=== PATIENT | female | born 1950 | race Caucasian/White ===

== ENCOUNTER → 2020-10-28 13:14 | Outpatient (CLI) | payer MEDICARE, SELFPAY ==
--- NOTE | ~2020-10-28 | MM_ITS ---
EXAMINATION: MM screening [facility] BI w otis HISTORY: Screening TECHNIQUE: Craniocaudal and mediolateral oblique 3-D tomosynthesis images were obtained and synthetic 2-D images were generated. CAD analysis was submitted and interpreted. COMPARISON: Comparison to multiple prior studies sequentially, with oldest reviewed study dated 06/2015. BREAST PARENCHYMAL COMPOSITION: There are scattered areas of fibroglandular density. FINDINGS: There is no evidence of suspicious mass, calcification, or architectural distortion to sugg est malignancy in either breast. There has been no suspicious interval change. IMPRESSION: 1. No mammographic evidence of malignancy. 2. Recommend routine screening mammography in one year. BI-RADS Category 1: Negative Reviewed, dictated and finalized at location A.
== END ==
PROVIDERS: PCP Internal Medicine; Visit Provider Advanced Practice Midwife
DX: Z12.31 Encounter for screening mammogram for malignant neoplasm of breast (principal)
CPT/HCPCS: 77063; 77067

== ENCOUNTER 2021-06-02 00:08 | Day surgery (SDC) | payer MEDICARE, SELFPAY ==
[2021-05-14 09:27] VITALS: BMI 31.4
--- NOTE | 2021-06-01 15:29 | PM.HPGS ---
History of Present Illness History of Present Illness Consent: Risks, benefits, and alternatives have been discussed and questions answered. Patient agrees to proceed with procedure. Chief complaint: hx of colon polyps Narrative: Deneen Willett is a 71 year old female referred for colon cancer screening. Five or 6 years ago she had a polyp removed Review of Systems Review of Systems: All systems reviewed & are unremarkable except as noted in HPI and below PMFSH Social History Social History Smoking status: Former smoker Tobacco type: cigarettes Second hand tobacco smoke exposure: No Alcohol intake: current Drinks per week: 4 Substance use: never Substance use type: does not use Living arrangements: with family Spiritual care concerns: No Meds Home Medications and Allergies Home Medications Medication Instructions Recorded Confirmed Type ascorbic acid (vitamin C) 500 mg PO DAILY 05/14/21 05/14/21 History calcium carbonate-vitamin D3 1 tablet PO DAILY 05/14/21 05/14/21 History [calcium-vitamin D3] escitalopram oxalate 10 mg PO DAILY 05/14/21 05/14/21 History ferrous sulfate [Iron (ferrous 325 mg PO DAILY 05/14/21 05/14/21 History sulfate)] insulin lispro 60 unit CONTINUOUS SUBCUTANEOUS 05/14/21 05/14/21 History INFUSION AC magnesium oxide 400 mg PO DAILY 05/14/21 05/14/21 History mecobalamin (vitamin B12) 1,000 mcg PO DAILY 05/14/21 05/14/21 History multivit with min-folic acid 1 tablet PO DAILY 05/14/21 05/14/21 History [Adult One Daily Multivitamin] vitamin B complex 1 tablet PO DAILY 05/14/21 05/14/21 History Allergies Allergy/AdvReac Type Severity Reaction Status Date / Time No Known Allergies Allergy Verified 06/02/21 06:49 Exam Resp: Auscultation: clear to auscultation bilaterally Cardio: Rate: regular rate Rhythm: regular rhythm GI: GI Palp: Yes Soft to palpation and No Tenderness to palpation present (GI) Assessment and Plan Assessment and plan (1) Colon cancer screening: Code(s): Z12.11 - Encounter for screening for malignant neoplasm of colon Status: Acute Assessment and Plan: Colonoscopy with possible biopsy or polypectomy or cautery or injection of substances.
[2021-06-02 06:51] VITALS: BP 126/65; PULSE 96; RESP 18; TEMP 36.4; O2SAT 100
[2021-06-02] MEDS: LACTATED RINGERS 1,000 ML 150 ML IV CONT (07:04)
--- NOTE | 2021-06-02 07:49 | P.PNAN_ITS ---
Anes - Initial Pre Proc Eval Procedure: Operation Date: 06/02/21 08:00 Proposed Procedures p Screening Colonoscopy - Jett Singh MD Date/Time: 06/02/21 07:49 Surgeon: Jett Singh MD Pre Op Diagnosis: hx of colon polyps Patient Data Age: 71 Gender: F Height: 1.52 m Weight: 75.2 kg Last Vital Signs Temp 97.6 F 06/02/21 06:51 Pulse 96 06/02/21 06:51 Resp 18 06/02/21 06:51 BP 126/65 06/02/21 06:51 Pulse Ox 100 06/02/21 06:51 Allergies Allergy/AdvReac Type Severity Reaction Status Date / Time No Known Allergies Allergy Verified 06/02/21 06:49 Home Medications Medication Instructions Recorded Confirmed Type ascorbic acid (vitamin C) 500 mg PO DAILY 05/14/21 05/14/21 History calcium carbonate-vitamin D3 1 tablet PO DAILY 05/14/21 05/14/21 History [calcium-vitamin D3] escitalopram oxalate 10 mg PO DAILY 05/14/21 05/14/21 History ferrous sulfate [Iron (ferrous 325 mg PO DAILY 05/14/21 05/14/21 History sulfate)] insulin lispro 60 unit CONTINUOUS SUBCUTANEOUS 05/14/21 05/14/21 History INFUSION AC magnesium oxide 400 mg PO DAILY 05/14/21 05/14/21 History mecobalamin (vitamin B12) 1,000 mcg PO DAILY 05/14/21 05/14/21 History multivit with min-folic acid 1 tablet PO DAILY 05/14/21 05/14/21 History [Adult One Daily Multivitamin] vitamin B complex 1 tablet PO DAILY 05/14/21 05/14/21 History Patient hx anesthesia problems: none Family hx anesthesia problems: none Results Review: All pre-operative results and documents have been reviewed as part of the pre-operative evaluation. [facility] Social History Social History Smoking status: Former smoker Tobacco type: cigarettes Second hand tobacco smoke exposure: No Alcohol intake: current Drinks per week: 4 Substance use: never Substance use type: does not use Living arrangements: with family Spiritual care concerns: No Anes - Eval Final PreProcedure Day of Procedure 01/05/22 07:49 Patient weight: obese Heart: regular rate and rhythm Lungs: clear to auscultation Airway: Mallampati scale class II Neurological: alert and oriented Last oral intake: >/= 8 hours ASA classification: III Emergent: no Anesthetic plan: proceed Anesthesia type and monitoring: general GIVS and standard monitoring Results Review: All pre-operative results and documents have been reviewed as part of the pre-operative evaluation. Informed Consent: The patient's anesthetic plan and its attendant risks and benefits were discussed with the patient/family/POA. Questions were solicited and answers provided to the satisfaction of the patient/family/POA.
[2021-06-02 07:53] LABS: Glucose Point of Care 207 mg/dl (65-105)
[2021-06-02 08:20] VITALS: BP 124/64; PULSE 74; RESP 17; O2SAT 100
[2021-06-02 08:30] VITALS: BP 137/70; PULSE 80; RESP 16; O2SAT 100
[2021-06-02 08:40] VITALS: BP 147/84; PULSE 75; RESP 13; O2SAT 99
[2021-06-02 08:44] LABS: Glucose Point of Care 168 mg/dl (65-105)
== END 2021-06-02 08:55 | disposition home or self-care (01) ==
PROVIDERS: Visit Provider Internal Medicine Gastroenterology
PROC: 0DJD8ZZ Inspection of Lower Intestinal Tract, Via Natural or Artificial Opening Endoscopic (ICD-10-PCS; CPT 45378; principal; 2021-06-02 08:00)
DX: Z12.11 Encounter for screening for malignant neoplasm of colon (principal); K63.5 Polyp of colon; Z87.891 Personal history of nicotine dependence; E66.9 Obesity, unspecified; Z68.32 Body mass index [BMI] 32.0-32.9, adult; E11.9 Type 2 diabetes mellitus without complications; Z79.4 Long term (current) use of insulin
CPT/HCPCS: 45385; 82948; 88305; J2704; J7120

== ENCOUNTER 2025-05-08 14:15 | Outpatient (CLI) | payer MEDICARE, SELFPAY ==
--- OUTSIDE RECORDS SUMMARY | 2025-05-08 17:09 | XMS_ITS | Clinical Summary ---
Author Organization [facility] Address [address] [place] [phone] Care Team Providers Care Independent Trader Name Role Phone Gabe Francisco MD Primary Care Provider Allergies No known active allergies Medications biotin 1 mg tablet qd unsure med dosage Active ferrous sulfate 325 mg (65 mg of elemental iron) tabletIndicatio ns:Iron Deficiency Anemia unsure med dosage bid Active multivitamin tabletIndicatio ns:Vitamin Deficiency Prevention daily. 8 Active cyanocobalamin (Vitamin B-12) 500 mcg tabletIndicatio ns:Prevention of Vitamin B12 Deficiency daily. Active ascorbic acid (VITAMIN C) 500 mg tablet,chewable TAKE 1 TABLET DAILY. unsure med dosage Active glucagon (Gvoke HypoPen 2-Pack) 1 mg/0.2 mL auto-injector Inject 1 mg under the skin as needed (for use in case of emergency for hypoglycemia) 0.4 mL 2 4 Active insulin glargine (LANTUS) 100 unit/mL (3 mL) pen for injection Inject 18 units every 24 hrs if pump fails 6 mL 3 4 Active Accu-Chek Guide test strips strip USE TO TEST BLOOD SUGAR 4 TIMES A DAY 50 strip 3 5 Active atorvastatin (LIPITOR) 10 mg tablet TAKE 1 TABLET(10 MG) BY MOUTH DAILY 90 tablet 2 5 Active tiZANidine (ZANAFLEX) 2 mg tablet Take 1 tablet (2 mg total) by mouth every 6 (six) hours as needed for muscle spasms 30 tablet 5 Active escitalopram (LEXAPRO) 10 mg tablet TAKE 1 TABLET(10 MG) BY MOUTH DAILY 90 tablet 3 5 Active insulin aspart (NovoLOG) 100 unit/mL vial for injection USE 60 UNITS DAILY VIA INSULIN PUMP Diagnosis code E10.9 pt is on Medicare please bill for pump coverage. 60 mL 3 5 Active Active Problems Problem Noted Date Diagnosed Date Muscle spasm 11/13/2024 Assessment & Plan (11/13/2024 1:03 PM CDT): Try tizanidine. Snoring 03/28/2024 Assessment & Plan (03/28/2024 1:14 PM CDT): She wishes to defer a sleep study at this time. Meralgia paresthetica of left side 11/03/2022 Assessment & Plan (11/03/2022 2:46 PM CDT): Avoid tight-fitting clothes. Hypertension, essential 12/22/2021 Assessment & Plan (02/20/2025 11:32 AM CDT): At goal on current therapy. Assessment & Plan (11/13/2024 1:01 PM CDT): BP in reasonable range today. Assessment & Plan (07/03/2024 10:54 AM SENIOR ENERGY TRADER): BP elevated today. Check BP's at home using automated cuff and keep log. Goal < 130/80. Assessment & Plan (03/28/2024 1:10 PM CDT): BP mildly elevated today. Will monitor. Assessment & Plan (12/11/2023 1:24 PM CDT): BP elevated today. Check BP's at home using automated cuff and keep log. Goal < 130/80. Assessment & Plan (08/28/2023 10:21 AM CDT): BP elevated today. Check BP's at home using automated cuff and keep log. Goal < 130/80. Assessment & Plan (02/06/2023 10:31 AM CDT): BP elevated today. Check BP's at home using automated cuff and keep log. Goal < 130/80. Assessment & Plan (11/03/2022 3:46 PM CDT): BP mildly elevated. Will monitor. Assessment & Plan (04/18/2022 2:44 PM SENIOR ENERGY TRADER): At goal on current therapy. Assessment & Plan (12/22/2021 10:34 AM CDT): BP elevated today. Check BP's at home using automated cuff and keep log. Goal < 130/80. If still high at next visit, I will start a BP med (had cough with lisinopril). Mixed hyperlipidemia 08/27/2021 Assessment & Plan (02/20/2025 11:31 AM CDT): At goal on current therapy. Assessment & Plan (11/13/2024 1:01 PM CDT): At goal on current therapy. Assessment & Plan (07/03/2024 10:06 AM SENIOR ENERGY TRADER): At goal on current therapy. Assessment & Plan (03/28/2024 1:10 PM CDT): At goal on current therapy. Assessment & Plan (12/11/2023 10:25 AM CDT): At goal on current therapy. Assessment & Plan (08/28/2023 10:21 AM CDT): Check lipids. Continue atorvastatin. Assessment & Plan (05/15/2023 12:20 PM SENIOR ENERGY TRADER): At goal on current therapy. Assessment & Plan (02/06/2023 10:12 AM CDT): At goal on current therapy. Assessment & Plan (11/03/2022 2:45 PM CDT): At goal on current therapy. Assessment & Plan (07/28/2022 6:40 PM SENIOR ENERGY TRADER): At goal on current therapy. Assessment & Plan (04/18/2022 2:44 PM SENIOR ENERGY TRADER): Impressive cholesterol reduction after starting statin; stay on same dose. Assessment & Plan (12/22/2021 10:31 AM CDT): Start atorvastatin 10 mg daily. Assessment & Plan (08/27/2021 11:02 AM CDT): Continues to have very high HDL, which is protective. Medicare annual wellness visit, subsequent 08/27 Assessment & Plan (08/27/2021 11:02 AM CDT): Counseling provided on healthy lifestyle. Exercise 30 minutes per day 5x weekly. Eat heart healthy (Mediterranean) diet of fruits, vegetables, and whole grains; avoid saturated fats and excess sweets. [place] and MMG UTD. Vaccinations UTD. She may receive the 2nd COVID booster. Dizziness 02/16/2021 Assessment & Plan (02/16/2021 4:05 PM CDT): Discussed results of MRI/MRA head/neck and offered reassurance. Aneurysm is incidental and not clinically significant. Type 1 diabetes mellitus without complication Assessment & Plan (02/20/2025 11:37 AM CDT): A1c at goal but she is still having postprandial hyperglycemia. I tightened her ICR from 5.5 to 5.0 from MN to 12:30PM. I also tightened the ICR from 3.6 to 3.3 from 4PM to 10PM. Continue routine eye exams. No neuropathy symptoms. Labs next time. Assessment & Plan (11/13/2024 1:02 PM CDT): A1c is at goal. Due to post-dinner hyperglycemia, I have tightened her ICR from 4PM to 10PM from 3.8 to 3.6 Continue routine eye exams. Labs due in February. Assessment & Plan (07/03/2024 10:57 AM SENIOR ENERGY TRADER): Images from the original note were not included. A1c is at goal but she is still having postprandial hyperglycemia. We tightened the ICR's as follows: MN to 12:30P: 6 -> 5.5 12:30P-4P: 5 -> 4.6 4P-10P: 4 -> 3.8 Recommend routine eye exams. Assessment & Plan (03/28/2024 1:11 PM CDT): A1c at goal, but still spiking with meals. This is likely an onset of action issue for the insulin rather than a timing issue, carb ratio problem, or AIT problem. I will switch her insulin in the pump from Novolog to Fiasp and we will do a one- month trial to see if this cuts back on the postprandial spikes. Assessment & Plan (12/11/2023 1:26 PM CDT): A1c at goal but she is having spikes with meals. I tightened her ICR's as follows: - MN-1230P: 7 -> 6.5. - 1230P-4P: 6 -> 5.5 - 4P-10P: 4.5 -> 4.2 Assessment & Plan (08/28/2023 10:22 AM CDT): A1c likely falsely elevated based on good glycemic control seen on pump/CGM settings. No changes to pump settings today. Meet with CDE today to discuss switching to Localo 780G pump. Assessment & Plan (05/15/2023 12:22 PM SENIOR ENERGY TRADER): A1c is above goal. I increased her basal rate from 0.45 to 0.95 from 3AM to 4AM and increased the basal rate from 0.95 to 1.05 Units/hr from 4AM to 6AM. I also tightened her ICR with dinner from 1:8 to 1:7.5. Assessment & Plan (02/06/2023 10:13 AM CDT): A1c at goal. Tightened ICR from 5.5 to 5.0. Assessment & Plan (11/03/2022 3:47 PM CDT): A1c above goal. Tighten ICR from 4PM to 6PM from 6 to 5.5, which matches the ICR from 6PM onwards of 5.5. She may change from the Tandem back to the Medtronic pump. Change target range on DEXCOM to 70-180, which is more standard. Assessment & Plan (07/28/2022 6:41 PM SENIOR ENERGY TRADER): A1c slightly above goal. Increased basal from 4AM to 12:30PM by 0.05 Units/hr. Assessment & Plan (04/18/2022 2:44 PM SENIOR ENERGY TRADER): A1c at goal on current therapy. Labs UTD. Recommend yearly eye exams. Assessment & Plan (12/22/2021 10:33 AM CDT): A1c at goal, but having postdinner spikes. She eats dinner early and does not eat lunch, so I changed her ICR from 12:30PM to 6PM from 1:7 to 1:6 and changed her ICR from 6PM to 10PM from 1:6.5 to 1:5.5. She will keep an eye on her overnight glucoses and will increase her basal from 0.45 to 0.50 Units/hr if still high in early AM after 1 week. Labs today. Recommended yearly eye exams. Assessment & Plan (08/27/2021 11:01 AM CDT): A1c above goal. Increase basal rates on pump from midnight to noon. She is not using Control-IQ. Labs and eye exams UTD. Assessment & Plan (05/17/2021 11:34 AM SENIOR ENERGY TRADER): A1c at goal on current therapy. No changes to pump settings. Labs UTD. Recommend yearly eye exams. Assessment & Plan (01/20/2021 11:04 AM CDT): Exceptional glycemic control. She does have a predictable rise in blood sugars with dinner. I recommended that she tighten her 6P-10P ICR from 1:7 to 1:6.5. Otherwise, no changes needed. Labs are UTD. Recommend yearly eye exams. Balance disorder 01/20/2021 Assessment & Plan (01/20/2021 11:06 AM CDT): Lightheadedness and associated balance problems. There is some component of dizziness as well. 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 Also consider inner ear issues and vertebrobasilar insufficiency. Send labs as below. If unremarkable, I would favor CTA or MRA of the head and neck. For now, recommend standing up or sitting up very slowly to allow time to equilibrate. Intestinal malabsorption 01/20/2021 Assessment & Plan (01/20/2021 11:07 AM CDT): Send labs to check for vitamin or mineral deficiencies as below. Osteoporosis 01/20/2021 Assessment & Plan (02/20/2025 11:36 AM CDT): We will plan for a 3rd Reclast dose at [facility]. Assessment & Plan (11/13/2024 1:02 PM CDT): BMD improving at spine and total hip. Will re-order 3rd dose of Reclast. Assessment & Plan (07/03/2024 10:54 AM SENIOR ENERGY TRADER): We will arrange for a 3rd Reclast infusion. Assessment & Plan (03/28/2024 1:10 PM CDT): We will give her the # to schedule the next dose of Reclast. Assessment & Plan (12/11/2023 1:24 PM CDT): Plan for 3rd dose of Reclast this month. Assessment & Plan (08/28/2023 10:02 AM CDT): Will plan for 3rd dose of Reclast in November 2023. Assessment & Plan (05/15/2023 12:21 PM SENIOR ENERGY TRADER): S/p two doses of Reclast. Needs DEXA. Assessment & Plan (02/06/2023 10:14 AM CDT): S/p two doses of Reclast. Repeat DEXA. Assessment & Plan (11/03/2022 2:45 PM CDT): Will help to schedule Reclast. Assessment & Plan (07/28/2022 6:40 PM SENIOR ENERGY TRADER): Ordered 2nd dose of Reclast. Assessment & Plan (04/18/2022 2:44 PM SENIOR ENERGY TRADER): Due for Reclast in May. Due for DEXA in Jan 2023. Assessment & Plan (12/22/2021 10:34 AM CDT): Reclast due in May. Assessment & Plan (08/27/2021 11:02 AM CDT): Continue yearly Reclast. Plan for DEXA in 2022. Assessment & Plan (05/17/2021 9:28 AM SENIOR ENERGY TRADER): Needs to schedule Reclast. Assessment & Plan (02/16/2021 4:05 PM CDT): Has prior history of fracture, osteoporosis by DEXA criteria at all sites, and is at high risk of fracture. We discussed the various options for treatment including Reclast, Prolia, and anabolics. We decided on yearly Reclast as the best balance of efficacy and convenience. Will arrange for infusion here in the [facility]. Discussed side effects including acute phase reaction and long-term side effects such as ONJ and AFF which are rarely seen. Continue BID Citracal+D. Encourage weight-bearing exercise. Refer to PT for balance training. Assessment & Plan (01/20/2021 11:07 AM CDT): Due for DEXA, which I have ordered. Her prior radial fracture is considered to be osteoporotic in nature, so will discuss osteoporosis treatment when DEXA returns. Left carpal tunnel syndrome 11/27/2019 Overview (11/27/2019): Added automatically from request for surgery [id number] Closed fracture of left distal radius 11/27/2019 Overview (11/27/2019): Added automatically from request for surgery [id number] Encounters Date Type Department Care Team Description 03/28/2025 2:41 PM CDT - 03/28/2025 11:59 PM CDT Hospital Encounter [address] [id number] Cm Boyle RN Osteoporosis, unspecified osteoporosis type, unspecified pathological fracture presence (Primary Dx) Discharge Disposition: Discharge to home or self care 03/28/2025 Results Follow-Up [facility] [address] [place] [phone] Gabe Francisco MD Basic metabolic panel, eGFR 03/25/2025 Orders Only [facility] [address] [place] [phone] Gabe Francisco MD Osteoporosis, unspecified osteoporosis type, unspecified pathological fracture presence (Primary Dx) 02/20/2025 11:15 AM CDT Office Visit [facility] [address] [place] [phone] Gabe Francisco MD Type 1 diabetes mellitus without complication (HCC) (Primary Dx); Hypertension, essential; Mixed hyperlipidemia; Osteoporosis, unspecified osteoporosis type, unspecified pathological fracture presence from Last 3 Months Immunizations Immunization Administration Dates Next Due Influenza, Trivalent, Adjuvanted, Intramuscular 01/31/2019,03/05/2018 Influenza, Unspecified 03/05/2020 Pneumococcal Conjugate PCV 13 03/05/2018 Surgical History Surgery Date Site/Laterality Comments GASTRIC BYPASS 05/29/2007 - 05/28/2008 CATARACT EXTRACTION EXTRACAP SULAR W/ INTRAOCULAR LENS IMPLANTATION Bilateral CHOLECYSTECTOMY 05/29/1982 - 05/28/1983 DILATION AND CURETTAGE OF UTERUS TRIGGER FINGER RELEASE 05/29/2009 - 05/28/2010 Right ring finger TONSILLECTOMY Medical History Medical History Date Comments Arthritis Anxiety well controlled with meds Diabetes mellitus type I 1982 well co ntrolled with meds, insulin pump Depression well controlled with meds Anemia iron count low-- >treated with OTC iron PONV (postoperative nausea and vomiting) Family History Medical History Relation Name Comments Hypertension Mother Family history of hypertension - (Added by TW Conv) Relation Name Status Comments Mother Social History Tobacco Use Types Packs/Day Years Used Date Smoking Tobacco: Former Cigarettes 0.5 8 1 1976 Smokeless Tobacco: Never Tobacco Cessation:Counseling Given: Not Answered Alcohol Use Standard Drinks/Week Comments Yes 14 (1 standard drink = 0.6 oz pu re alcohol) AUDIT-C Answer Date Recorded Q1: How often do you have a drink containing alc ohol? 2-4 times a month 08/27/2021 Q2: How many drinks containi ng alcohol do you have on a typical day when you are drinking? 1 or 2 08/27/2021 Q3: How often do you have si x or more drinks on one occasion? Never 08/27/2021 PHQ-2 Answer Date Recorded PHQ-2 Total Score (If total score is 3 or more points, staff should administer the PHQ-9) 0 08/27/2021 Hunger Vital Sign Answer Date Recorded Within the past 12 months, y ou worried that your food would run out before you got the money to buy more. Never true 12/06/19 23 Within the past 12 months, t he food you bought just didn't last and you didn't have money to get more. Never true 12/05/2022 Personal Safety Answer Date Recorded Have you ever been in or are you currently in a harmful physical or emotional relationship or is someone making you feel afraid or unsafe? Denies 12/05/2022 Comments No Sex and Gender Information Value Date Recorded Sex Assigned at Not on file Legal Sex Female 8:12 PM SENIOR ENERGY TRADER Gender Identity Female 05/20/2020 7:48 AM SENIOR ENERGY TRADER Sexual Orientation Straight 05/20/2020 7: 48 AM SENIOR ENERGY TRADER Last Filed Vital Signs Vital Sign Reading Time Taken Comments Blood Pressure 140/82 03/28/2025 4:20 PM CDT Pulse 74 03/28/2025 4:20 PM CDT Temperature 36.7 C (98 F) 03/28/2025 4:20 PM CDT Respiratory Rate 16 12/05/2022 1:30 PM CDT Oxygen Saturation 100% 03/28/2025 4:20 PM CDT Inhaled Oxygen Concentration - - Weight 82.1 kg (181 lb) 02/20/2025 11:00 AM CDT Height 152.4 cm (5') 02/20/2025 11:00 AM CDT Body Mass Index 35.35 02/20/2025 11:00 AM CDT Plan of Treatment Health Maintenance Due Date Last Done Comments Foot Exam 1949 Hepatitis C Screening 1949 Dilated Eye Exam 1959 Hepatitis B Screening 1967 Depression Screening 08/27/2022 08/27/2021 Fall Risk Assessment 08/27/2022 08/27/2021, 12/02/19 20 Well Visit 65+ 08/27/2022 08/27/2021, 06/15/2020 Albumin Creatinine Ratio, Urine 03/28/2025 03/28/2024, 02/06/2023, 12/22/2021, Additional history exists Lipid Panel 03/28/2025 03/28/2024, 04/0 05/2023, 07/28/2022, Additional history exists TSH Level 03/28/2025 03/28/2024, 01/27, 12/22/2021, Additional history exists Osteoporosis Screening-Bone Density Scan 06/26/2025 06/26/2023, 02/10/2021 Hemoglobin A1C 08/20/2025 02/20/2025, 10/27, 07/03/2024, Additional history exists Covid-19 Vaccine (2024- 6 season) 2025 02/24/2025, 04/04/2024, 03/02/2023, Additional history exists eGFR 03/28/2026 03/28/2025, 02/28, 02/06/2023, Additional history exists DTaP/Tdap/Td Vaccine (2 - Td or Tdap) 03/21/2032 03/21/2022 Zoster Vaccine Completed 07/06/2021, 03/12/2021 Pneumococcal vaccine 65+ Completed 03/02/2023, 12/2017 Influenza Vaccine Completed 02/24/2025, , 03/12/2023, Additional history exists Medical Devices Implanted Type Area Svp Monetization Device Identifier Shelf Expiration Date Model / Serial / Lot [employer] Inc A-4750.37 - [id number] Implanted:Qty: 1 on 12/02/2019 by Bruno Stone MD at [facility] Left: Radius [employer] A-4750.37 / / [employer] A-5700.20 2.5mm 20mm Cortical Screw Bone - [id number] Implanted:Qty: 1 on 12/02/2019 by Bruno Stone MD at [facility] Left: Radius [employer] A-5700.20 / / [employer] A-5042.41/1 Wire Fixation Christina Aptus Stainless Steel L150mm Od1.6mm Lancet Tip Nonsterile - [id number] Implanted:Qty: 2 on 12/02/2019 by Bruno Stone MD at [facility] Left: Radius [employer] A-5042.41/1 / / [employer] A-5700.12 Aptus 2.5mm 12mm Cortical Screw Bone - [id number] Implanted:Qty: 1 on 12/02/2019 by Bruno Stone MD at [facility] Left: Radius [employer] A-5700.12 / / [employer] A-5750.14/1 Aptus 2.5mm 14mm Lock Radius Screw Bone Elsa - [id number] Implanted:Qty: 2 on 12/02/2019 by Bruno Stone MD at [facility] Left: Radius [employer] A-5750.14/1 / / [employer] A-5750.12/1 Aptus Trilock 2.5mm 12mm Hexadrive 7 Adaptive Wrist Radius - [id number] Implanted:Qty: 2 on 12/02/2019 by Bruno Stone MD at [facility] Left: Radius [employer] A-5750.12/1 / / Screw 11mm 2.5mm Bone Cortical Aptus Titanium Hd7 5/Pk - [id number] Implanted:Qty: 1 on 12/02/2019 by Bruno Stone MD at [facility] Left: Radius [employer] A-5700.11 / / [employer] A-4750.54 Aptus Trilock 42mmx1.6mm 6 Hole Lateral Distal Radius Plate Bone - [id number] Implanted:Qty: 1 on 12/02/2019 by Bruno Stone MD at [facility] Left: Radius [employer] A-4750.54 / / [employer] A-5700.14 Aptus 2.5mm 14mm Cortical Screw Bone - [id number] Implanted:Qty: 1 on 12/02/2019 by Bruno Stone MD at [facility] Left: Radius [employer] A-5700.14 / / Explanted Type Area Svp Monetization Device Identifier Shelf Expiration Date Model / Serial / Lot [employer] A-5750.16/1 2.5mm 16mm Trilock Hexadrive Wrist Radius Screw Bone - [id number] Explanted:Qty: 1 on 12/02/2019 at [facility] Left: Radius [employer] A-5750.16/1 / / Procedures Procedure Name Priority Date/Time Associated Diagnosis Comments EGFR Routine 03/28/2025 2:53 PM CDT Osteoporosis, unspecified osteoporosis type, unspecified pathological fracture presence BASIC METABOLIC PANEL Routine 03/28/2025 2:53 PM CDT Osteoporosis, unspecified osteoporosis type, unspecified pathological fracture presence POCT HEMOGLOBIN A1C Routine 02/20/2025 11:45 AM CDT Type 1 diabetes mellitus without complication (HCC) LIPID PANEL Routine 03/28/2024 11:31 AM CDT Mixed hyperlipidemia ALBUMIN CREATININE RATIO, URINE Routine 03/28/2024 11:31 AM CDT Type 1 diabetes mellitus without complication (HCC) THYROID FUNCTION CASCADE Routine 03/28/2024 11:31 AM CDT Type 1 diabetes mellitus without complication (HCC) DEXA AXIAL SKELETON BONE DENSITY 1 OR MORE SITES Schedule Routine, Read Routine (OP Routine) 06/26/2023 9:19 AM SENIOR ENERGY TRADER Osteoporosis, unspecified osteoporosis type, unspecified pathological fracture presence from Last 3 Months or Most Recently Relevant to Health Maintenance Results * eGFR (03/28/2025 2:53 PM CDT) eGFR 67 >=60 mL/min/1. 73 m2 Comment: Interpretive Data Reference Interval Normal >/= 90 mL/min/1.73m2 Mildly decreased* 60 - 89 mL/min/1.73m2 Mildly to moderately decreased 45 - 59 mL/min/1.73m2 Moderately to severely decreased 30 - 44 mL/min/1.73m2 Severely decreased 15 - 29 mL/min/1.73m2 Kidney Failure < 15 mL/min/1.73m2 *Relative to young adult level Estimated glomerular filtration rate is determined by the 2020 CKD-EPI equation recommended by the National Kidney Foundation (A Unifying Approach to GFR Estimation: Recommendations of the NKF-ASK Task Force on Reassessing the Inclusion of Race in Diagnosing Kidney Disease, JASN 202). The CKD-EPI equation should not be used for patients with unstable renal function and has not been validated in children and those over 70. Current interpretive data was last reviewed 2021. Blood 03/28/2025 2:53 PM CDT 03/28/2025 2:57 PM CDT us Gabe Francisco MD LAB BLOOD ORDERABLES Fi nal Result [facility] [address] [facility] Department [place] [address] * Basic metabolic panel (03/28/2025 2:53 PM CDT) Sodium 139 135 - 145 mmol/L Potassium, pl 4.6 3.3 - 4.9 mmol/L [facility] Chloride 104 97 - 110 mmol/L [facility] CO2 28 22 - 32 mmol/L [facility] Anion gap 7 2 - 15 mmol/L [facility] BUN 14 6 - 25 mg/dL [facility] Creatinine 0.89 0.60 - 1.10 mg/dL [facility] Glucose 195 70 - 199 mg/dL [facility] Comment: Interpretive Data Fasting glucose >/= 126 mg/dl is diagnostic for diabetes. Fasting is defined as no caloric intake for at least 8 hours. Fasting glucose between 100 mg/dl to 125 mg/dl is diagnostic of prediabetes. In a patient with classic symptoms of hyperglycemia or hyperglycemic crisis, a random glucose >/= 200 mg/dl is diagnostic for diabetes. In the absence of unequivocal hyperglycemia, results should be confirmed by repeat testing. The classification and Diagnosis of Diabetes Diabetes Care 202; 46: S19-S40. Current interpretive data was last revised 2022. Calcium 8.9 8.5 - 10.3 mg/dL [facility] Blood 03/28/2025 2:53 PM CDT 03/28/2025 2:57 PM CDT Gabe Francisco MD LAB BLOOD ORDERABLES Fi nal Result [facility] [address] [facility] Department [place] [address] * (ABNORMAL) POCT hemoglobin A1c (02/20/2025 11:45 AM CDT) Pathologist [facility] Hemoglobin A1C, POC 6.5(A) 4.0 - 5.6 % Capillary blood 02/20/2025 1 1:45 AM CDT Gabe Francisco MD POINT OF CARE TEST ORDE RABDENY Final Result * Thyroid Function [place] (03/28/2024 11:31 AM CDT) Pathologist [facility] TSH 3.07 0.30 - 4.20 mcIUnit/mL Blood 03/28/2024 11:3 1 AM CDT 03/28/2024 11:51 AM CDT Gabe Francisco MD LAB BLOOD ORDERABLES Fi nal Result Performing Organization Address [facility] de Phone Number [facility] Department [place] [address] * Albumin Creatinine Ratio, Urine (03/28/2024 11:31 AM CDT) Albumin Ur <12.0 mg/L Comment: Interpretive Data No reference range established. Current interpretive data was last revised 2018. Creatinine Ur 84.1 mg/dL [facility] Comment: Interpretive Data No reference range established. Current interpretive data was last revised 2018. Albumin Creatinine Ratio, Ur <14 1 - 29 mg/g [facility] Urine 03/28/2024 11:3 1 AM CDT 03/28/2024 11:51 AM CDT Gabe Francisco MD LAB URINE ORDERABLES Fi nal Result Performing Organization Address [facility] de Phone Number [facility] Department [place] [address] * Lipid panel (03/28/2024 11:31 AM CDT) Cholesterol 177 30 - 199 mg/dL Comment: Interpretive Data Ages < or = 19 years Acceptable: <170 mg/dL Borderline high: 170-199 mg/dL High: >or= 200 mg/dL Ages > or = 20 years Desirable: <200 mg/dL Borderline high: 200-239 mg/dL High: >or= 240 mg/dL Literature References: 1. Expert Panel on Integrated Guidelines for Cardiovascular Health and Risk Reduction in Children and Adolescents. Pediatrics 2011;128:S213 2. NCEP Expert Panel. Circulation 2004;110:227 Current Interpretive Data was last revised on 2018. Triglycerides 58 <=149 mg/dL [facility] Comment: Interpretive Data Ages < or = 9 years Acceptable: <75 mg/dL Borderline high: 75-99 mg/dL High: >or= 100 mg/dL Ages 10 to 20 years Acceptable: <90 mg/dL Borderline high: 90-129 mg/dL High: >or= 130 mg/dL Ages > or = 20 years Desirable: <150 mg/dL Borderline high: 150-199 mg/dL High: 200-499 mg/dL Very high: >or= 499 mg/dL Literature References: 1. Expert Panel on Integrated Guidelines for Cardiovascular Health and Risk Reduction in Children and Adolescents. Pediatrics 2011;128:S213 2. NCEP Expert Panel. Circulation 2004;110:227 Current Interpretive Data was last revised on 2018. HDL 103 >=40 mg/dL [facility] Comment: Interpretive Data Ages < or = 19 years Acceptable: >45 mg/dL Borderline low: 40-45 mg/dL Low: <40 mg/dL Ages > or = 20 years Desirable: >or= 60 mg/dL Low: <40 mg/dL Literature References: 1. Expert Panel on Integrated Guidelines for Cardiovascular Health and Risk Reduction in Children and Adolescents. Pediatrics 2011;128:S213 2. NCEP Expert Panel. Circulation 2004;110:227 Current Interpretive Data was last revised on 2018. LDL, calculated 63 <=129 mg/dL [facility] Comment: Interpretive Data Ages < or = 19 years Acceptable: <110 mg/dL Borderline high: 110-129 mg/dL High: >or= 130 mg/dL Ages > or = 20 years Optimal: <100 mg/dL Near optimal: 100-129 mg/dL Borderline high: 130-159 mg/dL High: >160 mg/dL Calculated using the Carlos LDL-C estimating equation. This equation was implemented on 2024. Prior to this date LDL-C was estimated using the Friedewald equation. Literature References: 1. Expert Panel on Integrated Guidelines for Cardiovascular Health and Risk Reduction in Children and Adolescents. Pediatrics 2011;128:S213 2. NCEP Expert Panel. Circulation 2004;110:227 3. Carlos George al. HECTOR Cardiol. 2020 September 26;5(5):540-548. doi: 10.1001/[email or web address].2020.0013 Current Interpretive Data was last revised on 2024. Non-HDL Cholesterol 74 mg/dL [facility] Comment: Interpretive Data Ages < or = 19 years Acceptable: <120 mg/dL Borderline high: 120-144 mg/dL High: >145 mg/dL Ages > or = 20 years When triglycerides are >200 mg/dL, Non-HDL cholesterol is a secondary target of therapy with treatment goals that are 30 mg/dL greater than the LDL cholesterol target. Literature References: 1. Expert Panel on Integrated Guidelines for Cardiovascular Health and Risk Reduction in Children and Adolescents. Pediatrics 2011;128:S213 2. NCEP Expert Panel. Circulation 2004;110:227 Current Interpretive Data was last revised on 2018. Chol/HDL ratio 2 [facility] Blood 03/28/2024 11:3 1 AM CDT 03/28/2024 11:51 AM CDT us Gabe Francisco MD LAB BLOOD ORDERABLES Fi nal Result Performing Organization Address City/State/[facility] Co de Phone Number [facility] [place] [address] * Dexa Axial Skeleton Bone Density 1 or 2 Site (06/26/2023 9:19 AM SENIOR ENERGY TRADER) Anatomical Region Laterality Modality Body N/A Digital Radiogra phy 06/26/2023 9:24 AM SENIOR ENERGY TRADER Impressions 06/26/2023 9:52 AM SENIOR ENERGY TRADER 1. The bone mineral density of the lumbar spine is mildly decreased. There has been a statistically significant increase in bone mineral density since the baseline examination of 02/10/2021. 2. The bone mineral density of the left femoral neck is markedly decreased. There has been no significant change in bone mineral density since the baseline examination of 02/10/2021. 3. The bone mineral density of the left total hip is mildly decreased. There has been a statistically significant increase in bone mineral density since the baseline examination of 02/10/2021. 4. Overall, the above findings are diagnostic of osteoporosis by WHO criteria. 5. Calculation of fracture risk using the FRAX model is not appropriate in certain settings. It was not performed in this patient because the patient met the following condition(s): Interfering medications General comments regarding interpretation of bone density measurements: A) In children, premenopausal woman and males under age 50 not at increased risk for fractures only Z-scores, not T-scores are used to indicate risk. A Z-score above -2.0 is defined as within the expected range for age and Z-score at or less than -2.0 is below the expected range for age. A Z-score below the expected range for age in a patient with recent fractures and/or chronic corticosteroid treatment is consistent with a diagnosis of osteoporosis. B) In post menopausal women and males over 50, comparison of the measured bone mineral density with the average value in young normal subjects (the T-score) has been found to be useful in assessing fracture risk. Fracture risk approximately doubles for each 1.0 standard deviation (SD) in individual's hip or spine bone mineral density is below the average value of young normal subjects. The World Health Organization (WHO) has defined T-scores of -1.0 to -2.5 as diagnostic of low bone mass (OSTEOPENIA), and T-scores of -2.5 or lower to be diagnostic of OSTEOPOROSIS, based on the site of lowest bone density. Note that there will be a change in reporting format and reference databases as patients move from the younger population (group A) to the older population (group B) The National Osteoporosis Foundation (www.nof.org) recommends adequate intake of calcium and vitamin D and regular weight-bearing exercise in all patients. They recommend pharmacologic treatment in postmenopausal women and men age 50 and older presenting with any of the followin) Osteoporosis, after appropriate evaluation to exclude secondary causes. 2) A hip or vertebral (clinical or radiographic) fracture, regardless of the bone density. 3) Low bone mass (Osteopenia) and one or more of: other prior fractures, secondary causes associated with high risk of fracture (such as glucocorticoid use or total immobilization), or computed high risk of fracture (10-yr probability of hip fracture >= 3% or a 10-yr probability of any major osteoporosis-related fracture >= 20% based on the [place].-adapted WHO algorithm), available at http://www.shef.ac.uk/FRAX). Dictated by: Anjum Davis MD The radiology attending physician has personally reviewed this study, and had reviewed and/or edited this written report and agrees with it. Electronically signed by: Jacinda Motta M.D. Narrative 06/26/2023 9:52 AM SENIOR ENERGY TRADER BONE DENSITOMETRY OF THE SPINE AND HIP DATE OF STUDY: 06/26/2023 HISTORY: 73-year-old postmenopausal woman with height loss and known osteoporosis. She is being treated with Reclast, supplemental vitamin D and calcium. Evaluate bone mineral density. Additional risk factors for fracture: Prior fracture, steroid use, insulin requiring diabetes, and alcohol use FINDINGS (SPINE): The bone mineral density of L1-L4 was assessed by dual-energy x-ray absorptiometry. The average bone mineral density within this region is 0.858 gm/sq-cm. This is 0.6 standard deviations above the mean of the average bone mineral density for age- and gender-matched subjects (the Z-score). It is 1.7 standard deviations below the mean peak bone mineral density in young adults (the T-score). FINDINGS (FEMORAL NECK): The bone mineral density of the left femoral neck was assessed by dual-energy x-ray absorptiometry. The average bone mineral density within the femoral neck region is 0.463 gm/sq-cm. This is 1.4 standard deviations below the mean of the average bone mineral density for age- and gender-matched subjects (the Z-score). It is 3.5 standard deviations below the mean peak bone mineral density in young adults (the T-score). FINDINGS (TOTAL HIP): The bone mineral density of the left hip was assessed by dual-energy x-ray absorptiometry. The average bone mineral density within the total hip region is 0.678 gm/sq-cm. This is 0.4 standard deviations below the mean of the average bone mineral density for age- and gender-matched subjects (the Z-score). It is 2.2 standard deviations below the mean peak bone mineral density in young adults (the T-score). SUMMARY OF CURRENT RESULTS: Region BMD T-score Z-score AP Spine (L1-L4) 0.858 -1.7 0.6 Femoral Neck (Left) 0.463 -3.5 -1.4 Total Hip (Left) 0.678 -2.2 -0.4 COMPARISON WITH PREVIOUS RESULTS Region Age BMD T-score BMD Change BMD Change Exam Date g/cm2 vs Baseline vs Previous AP Spine (L1-L4) 06/26/2023 73 0.858 -1.7 11.5%* 11.5%* 02/10/2021 71 0.770 -2.5 Femoral Neck(Left) 06/26/2023 73 0.463 -3.5 0.6% 0.6% 02/10/2021 71 0.460 -3.5 Total Hip(Left) 06/26/2023 73 0.678 -2.2 11.2%* 11.2%* 02/10/2021 71 0.610 -2.7 *Denotes significance at 95% confidence level Procedure Note Jacinda Motta MD - 06/26/2023 BONE DENSITOMETRY OF THE SPINE AND HIP DATE OF STUDY: 06/26/2023 HISTORY: 73-year-old postmenopausal woman with height loss and known osteoporosis. She is being treated with Reclast, supplemental vitamin D and calcium. Evaluate bone mineral density. Additional risk factors for fracture: Prior fracture, steroid use, insulin requiring diabetes, and alcohol use FINDINGS (SPINE): The bone mineral density of L1-L4 was assessed by dual-energy x-ray absorptiometry. The average bone mineral density within this region is 0.858 gm/sq-cm. This is 0.6 standard deviations above the mean of the average bone mineral density for age- and gender-matched subjects (the Z-score). It is 1.7 standard deviations below the mean peak bone mineral density in young adults (the T-score). FINDINGS (FEMORAL NECK): The bone mineral density of the left femoral neck was assessed by dual-energy x-ray absorptiometry. The average bone mineral density within the femoral neck region is 0.463 gm/sq-cm. This is 1.4 standard deviations below the mean of the average bone mineral density for age- and gender-matched subjects (the Z-score). It is 3.5 standard deviations below the mean peak bone mineral density in young adults (the T-score). FINDINGS (TOTAL HIP): The bone mineral density of the left hip was assessed by dual-energy x-ray absorptiometry. The average bone mineral density within the total hip region is 0.678 gm/sq-cm. This is 0.4 standard deviations below the mean of the average bone mineral density for age- and gender-matched subjects (the Z-score). It is 2.2 standard deviations below the mean peak bone mineral density in young adults (the T-score). SUMMARY OF CURRENT RESULTS: Region BMD T-score Z-score AP Spine (L1-L4) 0.858 -1.7 0.6 Femoral Neck (Left) 0.463 -3.5 -1.4 Total Hip (Left) 0.678 -2.2 -0.4 COMPARISON WITH PREVIOUS RESULTS Region Age BMD T-score BMD Change BMD Change Exam Date g/cm2 vs Baseline vs Previous AP Spine (L1-L4) 06/26/2023 73 0.858 -1.7 11.5%* 11.5%* 02/10/2021 71 0.770 -2.5 Femoral Neck(Left) 06/26/2023 73 0.463 -3.5 0.6% 0.6% 02/10/2021 71 0.460 -3.5 Total Hip(Left) 06/26/2023 73 0.678 -2.2 11.2%* 11.2%* 02/10/2021 71 0.610 -2.7 *Denotes significance at 95% confidence level IMPRESSION: 1. The bone mineral density of the lumbar spine is mildly decreased. There has been a statistically significant increase in bone mineral density since the baseline examination of 02/10/2021. 2. The bone mineral density of the left femoral neck is markedly decreased. There has been no significant change in bone mineral density since the baseline examination of 02/10/2021. 3. The bone mineral density of the left total hip is mildly decreased. There has been a statistically significant increase in bone mineral density since the baseline examination of 02/10/2021. 4. Overall, the above findings are diagnostic of osteoporosis by WHO criteria. 5. Calculation of fracture risk using the FRAX model is not appropriate in certain settings. It was not performed in this patient because the patient met the following condition(s): Interfering medications General comments regarding interpretation of bone density measurements: A) In children, premenopausal woman and males under age 50 not at increased risk for fractures only Z-scores, not T-scores are used to indicate risk. A Z-score above -2.0 is defined as within the expected range for age and Z-score at or less than -2.0 is below the expected range for age. A Z-score below the expected range for age in a patient with recent fractures and/or chronic corticosteroid treatment is consistent with a diagnosis of osteoporosis. B) In post menopausal women and males over 50, comparison of the measured bone mineral density with the average value in young normal subjects (the T-score) has been found to be useful in assessing fracture risk. Fracture risk approximately doubles for each 1.0 standard deviation (SD) in individual's hip or spine bone mineral density is below the average value of young normal subjects. The World Health Organization (WHO) has defined T-scores of -1.0 to -2.5 as diagnostic of low bone mass (OSTEOPENIA), and T-scores of -2.5 or lower to be diagnostic of OSTEOPOROSIS, based on the site of lowest bone density. Note that there will be a change in reporting format and reference databases as patients move from the younger population (group A) to the older population (group B) The National Osteoporosis Foundation (www.nof.org) recommends adequate intake of calcium and vitamin D and regular weight-bearing exercise in all patients. They recommend pharmacologic treatment in postmenopausal women and men age 50 and older presenting with any of the followin) Osteoporosis, after appropriate evaluation to exclude secondary causes. 2) A hip or vertebral (clinical or radiographic) fracture, regardless of the bone density. 3) Low bone mass (Osteopenia) and one or more of: other prior fractures, secondary causes associated with high risk of fracture (such as glucocorticoid use or total immobilization), or computed high risk of fracture (10-yr probability of hip fracture >= 3% or a 10-yr probability of any major osteoporosis-related fracture >= 20% based on the [place].-adapted WHO algorithm), available at http://www.shef.ac.uk/FRAX). Dictated by: Anjum Davis MD The radiology attending physician has personally reviewed this study, and had reviewed and/or edited this written report and agrees with it. Electronically signed by: Jacinda Motta M.D. Gabe Francisco MD IMG DXA PROCEDURES Charmaine l Result from Last 3 Months or Most Recently Relevant to Health Maintenance Insurance [facility] MEDICARE [facility] MEDICARE ADVANTAGE T MEDICARE T MEDICARE [facility] MEDICARE Care Teams Independent Trader Relationship Specialty Start Date End Date Gabe Francisco MD PCP - General Endocrinology Diabetes & Metabolism 01/20/21
--- OUTSIDE RECORDS SUMMARY | 2025-05-08 17:09 | XMS_ITS | Encounter Summary ---
Author Organization [facility] Address [address] [place] [address] Care Team Providers Care Log Haul Operator Name Role Phone Gabe Francisco MD Primary Care Provider Encounter Details Date Type Department Care Team (Late st Contact Info) Description 11/28/2022 Telephone [facility] [address] [place] [id number] Roseline Lopez, RN Social History Tobacco Use Types Packs/Day Years Used Date Smoking Tobacco: Former Cigarettes 0.5 8 1 469 - 3046 Smokeless Tobacco: Never Alcohol Use Standard Drinks/Week Comments Yes 14 [...] staff should administer the PHQ-9) 0 08/27/2021 Comments No Sex and Gender Information Value Date Recorded Sex Assigned at Not on file Legal Sex Female 8:12 PM VICE PRESIDENT LENDING Gender Identity Female 05/20/2020 7:48 AM VICE PRESIDENT LENDING Sexual Orientation Straight 05/20/2020 7: 48 AM VICE PRESIDENT LENDING documented as of this encounter Plan of Treatment Not on file documented as of this encounter Visit Diagnoses Not on filedocumented in this encounter Care Teams Log Haul Operator Relationship Specialty Start Date End Date Gabe Francisco MD PCP - General Endocrinology Diabetes & Metabolism 01/20/21 documented as of this encounter
--- OUTSIDE RECORDS SUMMARY | 2025-05-08 17:09 | XMS_ITS | Clinical Summary ---
Author Organization [facility] Address [address] [place] [address] Care Team Providers Care Master Sonar Technician Name Role Phone Florencio Beckwith MD Primary Care Provider [phone] Source Comments [facility],non-owned Affiliates and Associated Physician Practices is amultiple site organization consisting of ambulatory clinics and hospital sitesin [place], [place], [place] and [place]. This disclosure is being madepursuant to the Care Everywhere program and may not contain all information available regarding this patient. Last updated 18.[employer] Allergies No known active allergies Medications * Be aware that medications may not be up to date on this document. Alwaysverify current medications with the patient. insulin lispro (HUMALOG) 100 UNIT/ML cartridgeIndica tions:per insulin pump Reasons: per insulin pump Active escitalopram (LEXAPRO) 10 MG tablet Take 10 mg by mouth once daily Active biotin 5 MG tablet Take 5 mg by mouth once daily Active vitamin C (ASCORBIC ACID) 1000 MG tablet Take 1,000 mg by mouth once daily Active Cyanocobalamin (VITAMIN B-12 PO) Active multivitamin daily tablet Take 1 tablet by mouth daily with food Active fluticasone propionate (FLONASE) 50 MCG/ACT nasal sprayIndication s:Nasal Signs and Symptoms [place] 2 sprays into each nostril once daily Reasons: Signs and Symptoms of Nose Diseases 1 bottles 09/27/2018 Active Immunizations Immunization Administration Dates Next Due INFLUENZA VACCINE, HIGH-DOSE , QUADR. (FLUZONE HIGH-DOSE QUADRIVALENT; 65Y+), 0.7 ML (HD-IIV4) 03/05/2020 Social History Tobacco Use Types Packs/Day Years Used Date Smoking Tobacco: Former Cigarettes 0 Q uit: 1975 Smokeless Tobacco: Never Comments No Sex and Gender Information Value Date Recorded Sex Assigned at Not on file Legal Sex Female 11:25 AM CDT Gender Identity Not on file Sexual Orientation Not on file Last Filed Vital Signs Vital Sign Reading Time Taken Comments Blood Pressure 126/80 09/27/2018 9:50 AM CDT Pulse 96 09/27/2018 9:50 AM CDT Temperature 37.2 C (98.9 F) 09/27/2018 9:50 AM CDT Respiratory Rate 16 09/27/2018 9:50 AM CDT Oxygen Saturation 97% 09/27/2018 9:50 AM CDT Inhaled Oxygen Concentration - - Weight 61.2 kg (135 lb) 09/27/2018 9:50 AM CDT Height 165.1 cm (5' 5) 09/27/2018 9:50 AM CDT Body Mass Index 22.47 09/27/2018 9:50 AM CDT Plan of Treatment Health Maintenance Due Date Last Done Comments BONE DENSITY TESTING 1950 HEPATITIS C SCREENING 12/28/1966 DTAP/TDAP/TD VACCINES (1 - Tdap) 01/02/1968 PNEUMOCOCCAL VACCINE 50+ (1 of 1 - PCV) 1999 ZOSTER VACCINE (1 of 2) 1999 Respiratory Syncytial Virus (RSV) Vaccine Pt: or over 60 yrs (1 - 1-dose 75+ series) 01/02/2024 DEPRESSION SCREENING 05/29/2024 MEDICARE AWV CALENDAR YEAR 2024 COVID-19 VACCINE (1 - 2024-2 6 season) 2025 INFLUENZA VACCINE (#1) 2025 03/05/2020 HEPATITIS B VACCINE Aged Out No longe r eligible based on patient's age to complete this topic HIB VACCINE Aged Out No longer eligi ble based on patient's age to complete this topic HPV VACCINE Aged Out No longer eligi ble based on patient's age to complete this topic MENINGOCOCCAL (Group B) VACC INE SHARED DECISION-MAKING Aged Out No longer eligibl e based on patient's age to complete this topic MENINGOCOCCAL GROUPS A/C/Y/W VACCINE Aged Out No longer eligible b ased on patient's age to complete this topic Insurance [employer] MEDICARE ADV MEDICARE ADV Care Teams Master Sonar Technician Relationship Specialty Start Date End Date Florencio Beckwith MD PCP - General Endocrinology 02/06/16
--- OUTSIDE RECORDS SUMMARY | 2025-05-08 17:09 | XMS_ITS | Encounter Summary ---
Author Organization [facility] Address [address] [place] [address] Care Team Providers Care Last Remodeler Repairer Name Role Phone Florencio Beckwith MD Primary Care Provider [phone] Encounter Details Date Type Department Care Team (Late st Contact Info) Description 08/08/2023 Lab Requisition [facility] - DermPath Lab [address] [facility] [address] [place] [address] Mac Valentin MD [address] [place] [address] Social History Tobacco Use Types Packs/Day Years Used Date Smoking Tobacco: Former Cigarettes 0 Q uit: 1976 Smokeless Tobacco: Never Comments No Sex and Gender Information Value Date Recorded Sex Assigned at Not on file Legal Sex Female 11:25 AM CDT Gender Identity Not on file Sexual Orientation Not on file documented as of this encounter Plan of Treatment Not on file documented as of this encounter Procedures Procedure Name Priority Date/Time Associated Diagnosis Comments DERMATOPATHOLOGY Routine 08/07/2023 12:0 0 AM CDT documented in this encounter Results * DERMATOPATHOLOGY (08/07/2023 12:00 AM CDT) Case Report Dermatopathology Report Case: [id number] Authorizing Provider: Mac Valentin MD Collected: 08/07/2023 12:00 AM Ordering Location: [facility] - Received: 08/09/2023 06:59 AM DermPath Lab Pathologist: An Amaya MD Specimens: A) - Skin, right lower eyelid B) - Skin, left buddhist 3:40 PM CDT DERMATOPATHOLOGY LABORATORY Final Diagnosis Specimen A. SKIN, right lower eyelid: BENIGN VERRUCOUS KERATOSIS, INFLAMED (L82.1) Specimen B. SKIN, left buddhist: EPIDERMOID CYST (L72.0) 3:40 PM CDT DERMATOPATHOLOGY LABORATORY at 1540 CDT Clinical History A: Verr B: Cyst vs Neoplasia 3:40 PM CDT DERMATOPATHOLOGY LABORATORY Gross Description Specimen A: Received is one formalin filled container labeled with the patients name and designated right lower eyelid. The specimen consists of a shave removal measuring 6x3x3 mm. Jar 0. Specimen B: Received is one formalin filled container labeled with the patient's name and designated left buddhist. The specimen consists of a shave biopsy measuring 5x3x3 mm. Jar 0. 3:40 PM CDT DERMATOPATHOLOGY LABORATORY Microscopic Description Specimen A. SKIN, right lower eyelid: Sections show hyperkeratosis, papillomatosis, hypergranulosis, and acanthosis. Inflammatory cells are present within the dermis. These histological findings can be seen in a verruca vulgaris or a seborrheic keratosis. Specimen B. SKIN, left buddhist: Within the dermis, there is a space lined by epithelium that resembles normal epidermis and the infundibular portion of the hair follicle. 3:40 PM CDT DERMATOPATHOLOGY LABORATORY Disclaimer An external and internal positive and negative controls are appropriate for the histochemical, immunohistochemical and immunofluorescence stain(s) in this case (if any), except where stated explicitly. The performance characteristics of the stain(s) cited in this report were developed and its performance characteristic determined by the Dermatopathology Laboratory at [facility], directed by Dr. Iqra Amaya. These tests need not be, and therefore are not, approved by the [place] Food and Drug Administration. The tests are used for clinical purposes. Billing Codes Specimen Charges Stain Charges 11786 84557 1 1 03/14/202 4 3:40 PM CDT DERMATOPATHOLOGY LABORATORY Embedded Images 4 3:40 PM CDT DERMATOPATHOLOGY LABORATORY Pathology/Cytology TISSUE SPECIMEN FROM SKIN / Unknown 08/07/2023 08/09/2023 6:59 AM CDT Miscellaneous samples (specimen) TISSUE SPECIMEN FROM SKIN / Unknown 08/07/2023 08/09/2023 6:59 AM CDT us Mac Valentin MD LAB - PATHOLOGY/CYTOLOGY ORDERAB LES Final Result DERMATOPATHOLOGY LABORATORY [facility] - Department of Dermatology [facility] [address] [place] [address], [address] [phone] documented in this encounter Visit Diagnoses Not on filedocumented in this encounter Care Teams Last Remodeler Repairer Relationship Specialty Start Date End Date Florencio Beckwith MD PCP - General Endocrinology 02/06/16 documented as of this encounter
--- OUTSIDE RECORDS SUMMARY | 2025-05-08 17:10 | XMS_ITS | Encounter Summary ---
Author Organization [facility] Healthcare Address [address] [place] [address] Care Team Providers Care Battery Charger Name Role Phone Gabe Francisco MD Primary Care Provider Encounter Details Date Type Department Care Team (Late st Contact Info) Description 02/12/2021 Telephone [facility] Radiology [address] [place] [address] Gabe Francisco MD [address] [address] Social History Tobacco Use Types Packs/Day Years Used Date Smoking Tobacco: Former Cigarettes 0.5 8 1 969 - 1977 Smokeless Tobacco: Never Alcohol Use Standard Drinks/Week Comments Yes 14 (1 standard drink = 0.6 oz pu re alcohol) Comments No Sex and Gender Information Value Date Recorded Sex Assigned at Not on file Legal Sex Female 8:12 PM LOOM MECHANIC Gender Identity Female 05/20/2020 7:48 AM LOOM MECHANIC Sexual Orientation Straight 05/20/2020 7: 48 AM LOOM MECHANIC documented as of this encounter Plan of Treatment Not on file documented as of this encounter Visit Diagnoses Not on filedocumented in this encounter Care Teams Battery Charger Relationship Specialty Start Date End Date Gabe Francisco MD PCP - General Endocrinology Diabetes & Metabolism 01/20/21 documented as of this encounter
--- OUTSIDE RECORDS SUMMARY | 2025-05-08 17:10 | XMS_ITS | Encounter Summary ---
Author Organization [facility] Address [address] [place] [address] Phone Care Team Providers Care Leadership Development Consultant Name Role Phone Florencio Beckwith MD Primary Care Provider [phone] Rutsy Kline MD Primary Care Provider [phone] Gabe Francisco MD Primary Care Provider Encounter Details Date Type Department Care Team (Latest Contact Info) Description 02/26/2020 Orders Only [facility] Scanning, Provider Social History Tobacco Use Types Packs/Day Years Used Date Smoking Tobacco: Former Cigarettes 0.5 8 1 234 - 1490 Smokeless Tobacco: Never Alcohol Use Standard Drinks/Week Comments Yes 14 (1 standard drink = 0.6 oz pu re alcohol) Comments No Sex and Gender Information Value Date Recorded Sex Assigned at Not on file Legal Sex Female 8:12 PM CHURCH COMMUNICATIONS ADMINISTRATOR Gender Identity Female 05/20/2020 7:48 AM CHURCH COMMUNICATIONS ADMINISTRATOR Sexual Orientation Straight 05/20/2020 7: 48 AM CHURCH COMMUNICATIONS ADMINISTRATOR documented as of this encounter Plan of Treatment Not on file documented as of this encounter Procedures Procedure Name Priority Date/Time Associated Diagnosis Comments SCAN - RADIOLOGY/IMAGING 02/26/2020 documented in this encounter Results * SCAN - RADIOLOGY/IMAGING (02/26/2020) Anatomical Region Laterality Modality Other us Provider Scanning Final Result documented in this encounter Visit Diagnoses Not on filedocumented in this encounter Care Teams Leadership Development Consultant Relationship Specialty Start Date End Date Florencio Beckwith MD [address] [address] PCP - General 05/05/17 03/15/20 Rusty Kline MD [address] [address] PCP - General Endocrinology Diabetes & Metabolism 03/16/20 01/19/21 Gabe Francisco MD [address] [phone] PCP - General Endocrinology Diabetes & Metabolism 01/20/21 documented as of this encounter
--- OUTSIDE RECORDS SUMMARY | 2025-05-08 17:10 | XMS_ITS | Encounter Summary ---
Author Organization [facility] Address [address] [place] [address] Phone Care Team Providers Care Account Technician Name Role Phone Rusty Kline MD Primary Care Provider [phone] Gabe Francisco MD Primary Care Provider Encounter Details Date Type Department Care Team (Latest Contact Info) Description 05/27/2020 Orders Only [facility] Scanning, Provider Social History Tobacco Use Types Packs/Day Years Used Date Smoking Tobacco: Former Cigarettes 0.5 8 1 189 - 4897 Smokeless Tobacco: Never Alcohol Use Standard Drinks/Week Comments Yes 14 (1 standard drink = 0.6 oz pu re alcohol) Comments No Sex and Gender Information Value Date Recorded Sex Assigned at Not on file Legal Sex Female 8:12 PM IMPORT CLERK Gender Identity Female 05/20/2020 7:48 AM IMPORT CLERK Sexual Orientation Straight 05/20/2020 7: 48 AM IMPORT CLERK documented as of this encounter Plan of Treatment Not on file documented as of this encounter Procedures Procedure Name Priority Date/Time Associated Diagnosis Comments SCAN - RADIOLOGY/IMAGING 05/27/2020 documented in this encounter Results * SCAN - RADIOLOGY/IMAGING (05/27/2020) Anatomical Region Laterality Modality Other us Provider Scanning Final Result documented in this encounter Visit Diagnoses Not on filedocumented in this encounter Care Teams Account Technician Relationship Specialty Start Date End Date Rusty Kline MD [address] [address] PCP - General Endocrinology Diabetes & Metabolism 03/16/20 01/19/21 Gabe Francisco MD [address] [phone] PCP - General Endocrinology Diabetes & Metabolism 01/20/21 documented as of this encounter
--- OUTSIDE RECORDS SUMMARY | 2025-05-08 17:10 | XMS_ITS | Encounter Summary ---
Author Organization [facility] Address [address] [place] [address] Care Team Providers Care Care Manager Cna Name Role Phone Gabe Francisco MD Primary Care Provider Encounter Details Date Type Department Care Team (Late st Contact Info) Description 03/28/2025 Results Follow-Up [facility] [address] [address] Gabe Francisco MD [address] [place] [id number] Basic metabolic panel, eGFR Social History Tobacco Use Types Packs/Day Years Used Date Smoking Tobacco: Former Cigarettes 0.5 8 1 9 1976 Smokeless Tobacco: Never Alcohol Use Standard Drinks/Week [...] on file Legal Sex Female 8:12 PM NEWSPAPER EDITOR Gender Identity Female 05/20/2020 7:48 AM NEWSPAPER EDITOR Sexual Orientation Straight 05/20/2020 7: 48 AM NEWSPAPER EDITOR documented as of this encounter Functional Status documented as of this encounter Miscellaneous Notes * Result Encounter Note - Gabe Francisco MD - 03/28/2025 3:40 PM CDT Labs normal. documented in this encounter Plan of Treatment Not on file documented as of this encounter Visit Diagnoses Not on filedocumented in this encounter Care Teams Care Manager Cna Relationship Specialty Start Date End Date Gabe Francisco MD PCP - General Endocrinology Diabetes & Metabolism 01/20/21 documented as of this encounter
== END 2025-05-08 14:16 | disposition home or self-care (01) ==
LOC: ANHAUDIO 14:15
PROVIDERS: PCP Internal Medicine; Visit Provider Otolaryngology
DX: H90.42 Sensorineural hearing loss, unilateral, left ear, with unrestricted hearing on the contralateral side (principal); H90.12 Conductive hearing loss, unilateral, left ear, with unrestricted hearing on the contralateral side
CPT/HCPCS: 92557; 92567